=== PATIENT | male | born 1980 | race Caucasian/White ===

== ENCOUNTER → 2016-06-19 | Outpatient (CLI) | payer BC ==
[~2016-06-19] MED LIST: METH4TAB27 PO; PRED20TA PO
[2016-06-19 10:56] VITALS: BP 116/76
--- NOTE | 2016-06-19 10:56 | Urgent Care T Sheet Gen (E) ---
Intake General Temperature (Fahrenheit): 97.6 Pulse: 49 Blood Pressure Systolic: 116 Blood Pressure Diastolic: 76 Respirations: 20 SPO2: 100 Description of Symptoms Patient presents with illness x 1 week. Is concerned he has strep throat. Notes sore throat and swollen glands, nasal congestion, and mild cough which is worse at night. Suffers from allergies on occasion, doesn't take any antihistamines. No fever. Been treating symptoms with Chloraseptic spray and Mucinex. History of Present Illness Allergies: Coded Allergies: sulfamethoxazole (Verified Allergy, Unknown, 08/16/15) trimethoprim (Verified Allergy, Unknown, 08/16/15) Home Meds Active Scripts Prednisone 20 Mg [id number] Mg PO DAILY Inflammation 12 Days Ref 0 4 daily x3 days, then 3 daily x3 days, then 2 daily x3 days, then 1 daily x3 days Prov:XOCHITL BALDERRAMA MD 08/16/15 Respiratory Constitutional Symptoms: No syptoms reported EENTM: Nose Congestion Throat pain Respiratory: Cough Cardiovascular: No symptoms reported Gastrointestinal/Abdominal: No symptoms reported All Other Systems Reviewed Remaining Systems: All other systems reviewed with negative findings Past Pdzedpj-Ixowxf-Blbtqs Hx Patient's Social History Alcohol Use: Occasionally Uses Smoking Status: Never smoker Surgeries/Hospitalizations Hospitalization/Surgery Hx: NO HX Respiratory Respiratory History: None Cardiovascular Cardiovascular History: None Gastrointestinal GI/Endocrine History: None Diabetes Diabetes: No HEENT Impaired Vision: None Hearing Impaired: None Integumentary Integumentary History: Other, see comments Comment: BLISTERED RASH Psychosocial Behavior Disorders: None Physical Exam Physical Exam General Appearance: WD/WN No apparent distress Eyes, Ears, Nose, Throat Ex: TMs normal Pharyngeal erythema (cobblestone appearance) Other (clear, thick nasal drainage) Neck Exam: Supple Lymphadenopathy (anterior cervical) Respiratory Exam: Lungs clear Normal breath sounds Cardiovascular Exam: Regular rate, rhythm Progress/Orders Lab Results Labs Results: Rapid Strep (negative) Departure Urgent Care Impression Impression: Primary Impression: Pharyngitis Qualified Code: J02.9 - Acute pharyngitis, unspecified Additional Impression: Allergic rhinitis Qualified Code: J30.1 - Allergic rhinitis due to pollen Departure Disposition: HOME OR SELF-CARE Condition: Stable Referrals: Kj Hope MD (PCP) Additional Instructions: Rapid strep was negative (he was concerned he had that and didn't want to infect his toddler) I have started him on a medrol dose pack for inflammation and drainage. Also suggested an antihistamine. No NSAIDs while on steroid Return as needed Patient understands DC instructions. All questions were answered. Scripts Methylprednisolone (Medrol Dosepack)21 Tab/Pkt Tablet6 Tab PO DAILY Inflammation #1 PKT Ref 0 6 tabs po on day 1 then decrease by 1 tab daily until packet is gone. Prov:JESSICA TURCIOS 06/19/16 End of report . JESSICA TURCIOS June 19, 2016 10:56
== END ==
LOC: MHUC 10:21
PROVIDERS: ATTEND Physician Assistant
DX: J02.9 Acute pharyngitis, unspecified (principal); J30.1 Allergic rhinitis due to pollen
CPT/HCPCS: 87880; 99213